=== PATIENT | female | born 1995 | race Caucasian/White ===

== ENCOUNTER 2020-01-24 08:57 | Emergency (ER) | payer OTHER, SELFPAY ==
[2020-01-24 09:08] VITALS: BP 117/89; PULSE 93; RESP 14; TEMP 36.6; O2SAT 100
--- NOTE | 2020-01-24 09:09 | ED.URI ---
HPI - URI/Sore Throat General Chief Complaint: Upper Respiratory Infection Stated Complaint: left eye throat and ear tender Time Seen by Provider: 01/24/20 09:09 Source: patient and RN notes reviewed History of Present Illness HPI Narrative: Patient is a 24-year-old female who presents the urgent care with complaints of left lower eyelid irritation, sore throat and left-sided headache. Patient states she does have a history of migraines and has not taken anything for the headache since it started last night. Patient states that it also is a little painful to swallow due to the sore throat. Patient denies of any fever, nausea, vomiting. No other acute complaints. No acute distress noted. Patient read the plan of care. Related Data Allergies Allergy/AdvReac Type Severity Reaction Status Date / Time No Known Allergies Allergy Verified 01/24/20 09:11 Review of Systems Review of Systems: Narrative: CONSTITUTIONAL: Denies fever, chills, or sweats. EYES: Reports of left eye irritation and drainage ENT: Reports of sore throat and left-sided earache CARDIOVASCULAR: Denies chest pain, palpitations, or edema. RESPIRATORY: Denies cough or dyspnea. GASTROINTESTINAL: Denies abdominal pain, nausea, vomiting, or diarrhea. GENITOURINARY: Denies dysuria or hematuria. SKIN: Denies rash or itching. MUSCULOSKELETAL: Denies back pain, joint pain, or myalgia. NEUROLOGIC: Reports of headache All other systems reviewed are negative, except as documented in HPI. [facility] Family History Family History (Updated 04/05/14 @ 07:13 by DOCTOR UNKNOWN) Mother Family history of thyroid disease Social History Social History Smoking status: Never smoker Alcohol intake: current Comments At the time of my signature, I reviewed and agree with the nursing past medical, surgical, social, and family history. There is no relevant family history pertinent to the patient complaint. Exam Narrative: Exam Narrative: GENERAL: This is a well-nourished, well-developed patient, in no apparent distress. HEAD: normocephalic, atraumatic. EYES: PERRL. Sclera clear/white. Vision is grossly intact. Clear drainage noted to the left with mild edema to left lower eyelid and notable irritation; no obvious hordeolum, injury EARS: External ears normal, auditory canals clear and without drainage, TMs normal without perforation. Hearing grossly intact. NOSE: External nose normal with no obvious nasal discharge, nares without redness, no rhinorrhea. THROAT: Mucous membranes moist, mild erythema noted posterior oropharynx NECK: Neck supple CARDIOVASCULAR: Regular rate and rhythm without murmurs, gallops, or rubs. RESPIRATORY: Clear to auscultation. Breath sounds equal bilaterally. No wheezes, rales, or rhonchi. SKIN: warm, intact with no suspicious lesions or rash, good texture and turgor. NEURO: awake, alert, and oriented to person, place and time. There were no obvious focal neurologic abnormalities. EXTREMITIES: No clubbing, cyanosis, or edema. Course Vital Signs Vital signs: Vital Signs Temperature 98 F 01/24/20 09:08 Pulse Rate 93 01/24/20 09:08 Respiratory Rate 14 01/24/20 09:08 Blood Pressure 117/89 01/24/20 09:08 Pulse Oximetry 100 01/24/20 09:08 Temperature 98 F 01/24/20 09:08 Pulse Rate 93 01/24/20 09:08 Respiratory Rate 14 01/24/20 09:08 Blood Pressure 117/89 01/24/20 09:08 Pulse Oximetry 100 01/24/20 09:08 Reviewed MDM - URI/Sore Throat MDM Narrative Medical decision making narrative: Reviewed lab results with the patient. Aware that strep swab was negative. Educated patient on culture we will call within 72 hours if culture is positive and antibiotics and necessary. Advised the patient to use [id number] medication for her migraine such as Excedrin or ibuprofen. Use warm compress to the left eye for comfort. Use eyedrops to the left eye as directed. Do not wear any eye make-up on the left eye for the next 2 to
== END 2020-01-24 09:42 | disposition home or self-care (01) ==
PROVIDERS: Emergency Provider Nurse Practitioner Family
DX: J02.9 Acute pharyngitis, unspecified (principal); H57.12 Ocular pain, left eye
CPT/HCPCS: 87081; 87880; 99213; G0463

== ENCOUNTER 2021-10-31 12:44 | Outpatient (CLI) | payer OTHER, SELFPAY ==
[2021-10-31 13:23] LABS: Hematocrit 40.4 % (37.0-47.0); Hemoglobin 13.2 g/dL (12.0-15.0)
== END 2021-10-31 12:45 | disposition home or self-care (01) ==
PROVIDERS: PCP Family Medicine; Visit Provider Student in an Organized Health Care Education/Training Program
DX: N92.6 Irregular menstruation, unspecified (principal); Z01.818 Encounter for other preprocedural examination
CPT/HCPCS: 36415; 85014; 85018

== ENCOUNTER 2021-11-06 00:34 | Day surgery (SDC) | payer OTHER, SELFPAY ==
[2021-10-27 15:26] VITALS: BMI 25.6
--- NOTE | 2021-10-27 15:27 | PC.NURSE ---
Report to the Outpatient Waiting Room, entrance under the green pavilion located off [facility], at time _1330 on date _11/06/21 . OR Time: ___1530 . - You and your visitor will be asked a series of questions to screen for COVID 19 for your protection. - A mask is required within the hospital. Preoperative COVID Testing Requirements: No COVID Test needed if: (proof is required; if not received patient will have Rapid Test prior to entry) - Patient has received COVID Vaccine at least 14 days prior to procedure date or - Patient has positive COVID test result within last 90 days of surgery date. COVID Test needed if above criteria is not met If not COVID vaccinated a COVID test must be conducted within 72 hours of surgery and patient is asked to isolate self from time of testing until procedure. You will go to the [facility] for your COVID testing. The [facility] is located at the corner of [address] [facility]. You will only be called if COVID results are positive and your surgeon may reschedule your elective surgery date. Patients may have clear liquids (water, carbonated beverages, clear teas, apple juice) until 3 hours prior to surgery with a maximum of 20 ounces. - No food from midnight until time of surgery - Infants may have breast milk until 4 hours before surgery, formula 6 hours prior to surgery. - Children will be allowed to drink immediately following surgery. If applicable, please bring a bottle or sippy cup to assist with drinking. Juice, water, soda, and popsicles are readily available. For infants on formula, please bring formula the day of surgery. Pacifiers are allowed. Take the following medications with a SIP of water the morning of surgery: CITALOPRAM Medications to discontinue per physician Date to take last dose Please no make-up, nail [place], hairspray, perfume, deodorant, or body powder the day of surgery. No jewelry (including any body piercings) or valuables the day of surgery, leave them at home. Please take a shower or bath the night before, or the morning of, surgery with an antibacterial soap. Wear comfortable, loose fitting clothing. Children are encouraged to wear pajamas. - Jewelry must be removed prior to entering the operating room. Rings and piercings that are not removed may be cut off. - The hospital will not accept responsibility for valuables. - Please leave all valuables, including medications, at home the day of surgery. If you are going home after surgery, a licensed bus driver school must drive you home. - NO public transportation without another adult. - We recommend that an adult stay with you for 24 hours following discharge. - We also recommend that you do not drive, make important decision, drink alcoholic beverages, or take any drugs that were not prescribed by your health care provider for at least 24 hours after your discharge time. For Pediatric surgeries, we recommend two adults accompany the child home (only one inside the building at this time). One visitor will be allowed to accompany the patient into the hospital. Patients visitor will be instructed to remain with patient at all times or leave the building. We will allow the visitor to come back to the postoperative area when patient is ready. Follow any additional instructions given to you from your surgeon. Telephone instructions given to __PATIENT and asked if any additional questions and then verbalized understanding. Patient advised to call surgeon office or pre surgery nurse liaison [phone] if any additional questions.
--- NOTE | 2021-11-05 07:55 | PM.IMHP ---
H&P: HPI History of Present Illness Date/Time: 11/05/21 07:55 Chief Complaint: abnormal uterine bleeding Narrative: 26 yo who presents for hysteroscopy D&C for abnormal uterine bleeding. Pt presented to the office complaining of irregular menses. Pt states the length and bleeding profile of her cycle would vary month to month. Pt also reported some intermenstrual spotting. Pt and her have been trying to conceive without success. Pelvic US showed an area of thickened endometrial near the fundus. Image may suggest polyp. Will plan for hysteroscopy D&C to evaluate the cavity. Review of Systems Cardiovascular: Cardiovascular: Denies chest pain, Denies leg edema, Denies palpitations, Denies dyspnea and Denies dyspnea on exertion Respiratory: Respiratory: Denies cough, Denies dyspnea and Denies dyspnea on exertion Gastrointestinal: Gastrointestinal: Denies abdominal pain, Denies constipation, Denies diarrhea, Denies nausea and Denies vomiting Genitourinary: Genitourinary: Denies hematuria, Denies urinary frequency, Denies dysuria, Denies pelvic pain, Denies urinary incontinence and Denies vaginal discharge Neurologic: Reports system reviewed and no additional complaints, except as documented Psychiatric: Psychiatric: Reports no additional psychiatric complaints Endocrine: Endocrine: Denies palpitations [facility] Family History Family History (Updated 04/05/14 @ 07:13 by DOCTOR UNKNOWN) Mother Family history of thyroid disease Social History Social History Smoking status: Never smoker Alcohol intake: current Drinks per week: 1 Substance use: never Meds Home Medications and Allergies Home Medications Medication Instructions Recorded Confirmed Type amitriptyline 10 mg PO HS 10/27/21 10/27/21 History escitalopram oxalate 20 mg PO DAILY 10/27/21 10/27/21 History rizatriptan 10 mg PO PRN PRN 10/27/21 10/27/21 History Allergies Allergy/AdvReac Type Severity Reaction Status Date / Time No Known Allergies Allergy Verified 01/24/20 09:11 Exam Const: General: no acute distress Eyes: EOM: EOMs intact bilaterally Neck: Neck: supple Thyroid: thyroid normal Chest: Breast/axilla inspection: normal inspection of the breasts Breast/axilla palpation: normal palpation of the breasts, normal palpation of the axillae and no axillary lymphadenopathy Resp: Effort & Inspection: normal respiratory effort Auscultation: clear to auscultation bilaterally Cardio: Rate: regular rate Rhythm: regular rhythm GI: Inspection: non-distended GI Palp: Yes Soft to palpation, No Tenderness to palpation present (GI) and No Guarding due to palpation present (GI) Auscultation: normal bowel sounds : General: No bladder normal to palpation External Female Exam: normal external appearance Speculum Exam - Vagina: normal vaginal discharge and No vaginal bleeding Speculum Exam - Cervix: nontender Bimanual exam- vagina & uterus: No bladder normal to palpation and No Cervical tenderness present OB/external & speculum: No vaginal bleeding Skin: General skin exam: normal color and no rashes or lesions noted Neuro: Cognition (Neuro): normal cognition Speech: normal speech Extrem: General: normal to inspection and no edema Psych: Mental Status: mental status grossly normal Affect: normal affect Assessment and Plan Assessment and plan (1) Abnormal uterine bleeding (AUB): Code(s): N93.9 - Abnormal uterine and vaginal bleeding, unspecified Status: Acute Assessment and Plan: pt c/o irregular menses pt having intermenstrual spotting pelvic US showed focal area of thickened endometrium pt has been unable to conceive will plan for hysteroscopy D&C to evaluate the endometrium.
--- NOTE | 2021-11-05 15:24 | P.PNAN_ITS ---
Anes - Initial Pre Proc Eval Procedure: Operation Date: 11/06/21 15:30 Proposed Procedures p Hysteroscopy Dilation and Curettage - Gilberto Fitzgerald MD Date/Time: 11/05/21 15:24 Surgeon: Gilberto Fitzgerald MD Pre Op Diagnosis: irregular bleeding Patient Data Age: 26 Gender: F Height: 1.68 m Weight: 72 kg Allergies Allergy/AdvReac Type Severity Reaction Status Date / Time No Known Allergies Allergy Verified 11/06/21 13:23 Home Medications Medication Instructions Recorded Confirmed Type amitriptyline 10 mg PO HS 10/27/21 11/06/21 History escitalopram oxalate 20 mg PO DAILY 10/27/21 11/06/21 History rizatriptan 10 mg PO PRN PRN 10/27/21 11/06/21 History Patient hx anesthesia problems: none Family hx anesthesia problems: none Results Review: All pre-operative results and documents have been reviewed as part of the pre-operative evaluation. [facility] Past Medical History Medical History (Updated 11/05/21 @ 15:24 by Rick Cheung MD) Anxiety Depression Migraine Family History Family History (Updated 04/05/14 @ 07:13 by DOCTOR UNKNOWN) Mother Family history of thyroid disease Social History Social History Smoking status: Never smoker Alcohol intake: current Drinks per week: 1 Substance use: never Living arrangements: with family Anes - Eval Final PreProcedure Day of Procedure 11/05/21 15:24 Patient weight: normal Heart: regular rate and rhythm Lungs: clear to auscultation and normal air movement Airway: Mallampati scale class II Neurological: alert and oriented Last oral intake: >/= 8 hours ASA classification: II Emergent: no Anesthetic plan: proceed Anesthesia type and monitoring: general GIVS Results Review: All pre-operative results and documents have been reviewed as part of the pre-operative evaluation. Informed Consent: The patient's anesthetic plan and its attendant risks and benefits were discussed with the patient/family/POA. Questions were solicited and answers provided to the satisfaction of the patient/family/POA.
--- NOTE | 2021-11-06 09:03 | WPDHPUPDATE1 ---
History and Physical Update Update Date/Time: 11/06/21 09:03 History and Physical has been reviewed, including an updated exam of the patient. There are NO changes in the patient's condition. Risks, benefits, and alternatives have been discussed and questions answered. Patient agrees to proceed with procedure.
[2021-11-06] MEDS: ACETAMINOPHEN 500 MG TABLET 1000 MG PO (13:35)
[2021-11-06 13:37] VITALS: BMI 26.4
[2021-11-06 13:38] VITALS: BP 114/95; PULSE 85; RESP 16; TEMP 36.9; O2SAT 99
[2021-11-06] MEDS: LACTATED RINGERS 1,000 ML 30 ML IV CONT (13:54)
[2021-11-06 15:51] VITALS: BP 97/59; PULSE 66; RESP 16; O2SAT 100
--- NOTE | 2021-11-06 15:56 | W.PM.PROC2 ---
Procedure Note - Detailed Date of Procedure 11/06/21 Pre-op Diagnosis irregular bleeding Post-op Diagnosis Same Procedure Performed paracervical block hysteroscopy dilation & curettage Surgeon Gilberto Fitzgerald MD Anesthesia General Indications abnormal uterine bleeding Findings normal appearing intrauterine cavity. Normal tubal ostia bilaterally Description of Procedure Ayla Vaughn presents for hysteroscopy D&C. She was counseled as to the indications, risks, benefits, and alternatives to surgery, with the risks including bleeding, infection, damage to surrounding organs, VTE, and complications of anesthesia. Her verbal and written consent was obtained. PROCEDURE: The patient was taken to the OR and general anesthesia induced. She was prepped and draped in Guille stirrups with support of the back and bilateral lower extremities. I/O catheterization performed of the bladder. The above findings were noted. Infiltration with 1% lidocaine at the 3 and 9 o'clock cervical positions was performed. A single tooth tenaculum was placed on the anterior lip of the cervix. The cervix was dilated with sequential Salud dilators. Hysteroscopy, using a normal saline medium, was performed and showed the above findings. The endometrial lining was visualized and was found to be globally thickened but normal in appearance. Bilateral tubal ostia visualized and patent. Sharp uterine curettage was then performed and tissue placed on Telfa. The tenaculum was removed and hemostasis was observed. The patient tolerated the procedure well. Sponge, lap, and needle counts were correct. Fluid deficit of hysteroscopy was 30 mL. The patient was taken to the recovery room in stable condition. Estimated Blood Loss 25 Urine Output 100 Drains No Packing No Pathology Yes (endometrial curettings ) Complications No immediate complications Condition Stable Disposition PACU
[2021-11-06] MEDS: oxyCODONE HCL (*CRX) 5 MG TAB IR PO (16:05)
[2021-11-06 16:15] VITALS: BP 101/61; PULSE 64; RESP 20
[2021-11-06 16:45] VITALS: BP 106/73; PULSE 58; RESP 20
== END 2021-11-06 16:48 | disposition home or self-care (01) ==
PROVIDERS: PCP Family Medicine; Visit Provider Student in an Organized Health Care Education/Training Program
PROC: 0U5B8ZZ Destruction of Endometrium, Via Natural or Artificial Opening Endoscopic (ICD-10-PCS; CPT 58563; principal; 2021-11-06 15:30)
DX: N93.9 Abnormal uterine and vaginal bleeding, unspecified (principal); F41.8 Other specified anxiety disorders; N92.6 Irregular menstruation, unspecified
CPT/HCPCS: 58558; 36415; 85014; 85018; 88305; A9270; J2250; J2704; J3010; J7120

== ENCOUNTER 2022-01-10 10:35 | Emergency (ER) | payer OTHER, SELFPAY ==
--- NOTE | ~2022-01-10 | XR_ITS ---
EXAMINATION: XR finger 2nd LT min 2V INDICATION: Left second finger pain TECHNIQUE: Three views of the left second finger are obtained. COMPARISON: None available FINDINGS: There is soft tissue swelling of the finger. The joint spaces are normal. There is no fract ure. No radiopaque foreign body is identified. IMPRESSION: 1. Soft tissue swelling without acute osseous abnormality or radiopaque foreign body. Reviewed, dictated and finalized at location A.
[2022-01-10 10:50] VITALS: BP 111/65; PULSE 86; RESP 18; TEMP 36.6; O2SAT 100
--- NOTE | 2022-01-10 11:06 | ED.UPPEXIN ---
HPI - Extremity Injury (Upper) General Chief Complaint: Extremity Injury, Upper Stated Complaint: left finger injury Time Seen by Provider: 01/10/22 11:27 Source: patient and RN notes reviewed Mode of arrival: ambulatory Limitations: no limitations History of Present Illness HPI narrative: 26-year-old female presents with concern for injury to the second digit of left hand. Reports yesterday her was mowing the lawn and a rock flew out from under the mower and hit her finger. She reports a small abrasion to the dorsal aspect of the hand, reports swelling and bruising. Reports pain with straightening the digit. Reports difficulty fully bending the digit. Related Data Home Medications Medication Instructions Recorded Confirmed cyanocobalamin (vitamin B-12) 1,000 ml 01/10/22 1,000 mcg/mL injection solution escitalopram oxalate 20 mg tablet 20 tablet PO DAILY 01/10/22 01/10/22 Allergies Allergy/AdvReac Type Severity Reaction Status Date / Time No Known Allergies Allergy Verified 01/10/22 11:08 Review of Systems Review of Systems: CONSTITUTIONAL: Denies malaise, chills, sweats, or fever. SKIN: Denies rash or itching, open skin, laceration, redness, warmth. Reports small abrasion to the second digit of left hand MUSCULOSKELETAL: Reports pain, swelling, bruising at the second edge of left hand NEUROLOGIC: Denies numbness, weakness All systems reviewed & are unremarkable except as noted in HPI and below PMFSH Past Medical History Medical History (Updated 01/10/22 @ 11:35 by Alessandra Reynoso NP) Anxiety Depression Migraine Family History Family History (Updated 04/05/14 @ 07:13 by DOCTOR UNKNOWN) Mother Family history of thyroid disease Social History Social History Smoking status: Never smoker Alcohol intake: current Drinks per week: 1 Substance use: never Comments At time of signature, agree with nursing past medical, surgical, social and family history. There is no relevant family history pertinent to the presenting complaint Exam Narrative: GENERAL: Well-appearing, well-nourished, and in no acute distress. HEAD: Normocephalic, atraumatic. EYES: PERRLA, conjunctivae clear NECK: Supple. CHEST: Speaks in full sentences. No respiratory distress. HEART: Regular rate and rhythm. Normal and equal peripheral pulses. EXTREMITIES: [Xxx] has normal strength and sensation, normal range of motion. No edema or ecchymosis. 5/5 strength with [xxx] flexion and extension. Normal sensation with sensitivity to light touch and pain. No point tenderness. No open wounds, no skin tenting, no devitalized tissue or atrophy, no trophic changes, no obvious deformity, alignment normal, nearby joints and structures intact. Distal pulses palpable and equal bilaterally, skin warm, dry, pink. Capillary refill less than 3 seconds. SKIN: Warm, dry, no rash. NEURO: Alert and oriented x3. PSYCH: Normal mood and affect Course Course Emergency Course: Patient is aware of diagnosis, understands and agrees to treatment plan. Anticipatory guidance given. Patient agrees to follow-up as directed and is aware of reasons to seek care at the emergency department. Portions of this record may have been created with voice recognition software Level of Care: Express Care Visit Vital Signs Vital signs: Vital Signs Temperature 97.8 F 01/10/22 10:50 Pulse Rate 86 01/10/22 10:50 Respiratory Rate 18 01/10/22 10:50 Blood Pressure 111/65 01/10/22 10:50 Pulse Oximetry 100 01/10/22 10:50 Oxygen Delivery Room Air 01/10/22 10:50 Temperature 97.8 F 01/10/22 11:10 Pulse Rate 86 01/10/22 11:10 Respiratory Rate 18 01/10/22 11:10 Blood Pressure 111/65 01/10/22 11:10 Pulse Oximetry 100 01/10/22 11:10 Oxygen Delivery Room Air 01/10/22 11:10 Reviewed. MDM - Extremity Injury (Upper) MDM Narrative Medical decision making narrative: Patients injury and pain is consistent with musculoske
[2022-01-10 11:10] VITALS: BP 111/65; PULSE 86; RESP 18; TEMP 36.6; O2SAT 100
== END 2022-01-10 11:42 | disposition home or self-care (01) ==
PROVIDERS: Emergency Provider Nurse Practitioner; PCP Family Medicine
DX: S63.611A Unspecified sprain of left index finger, initial encounter (principal); W20.8XXA Other cause of strike by thrown, projected or falling object, initial encounter; F41.9 Anxiety disorder, unspecified; F32.A Depression, unspecified
CPT/HCPCS: 29130; 73140; 99213; G0463

== ENCOUNTER 2023-09-13 07:54 | Outpatient (CLI) | payer OTHER, MEDICAID, SELFPAY | END 2023-09-13 07:55 | disposition home or self-care (01) | PROVIDERS: PCP Family Medicine; Visit Provider Obstetrics & Gynecology | DX: Z01.818 Encounter for other preprocedural examination (principal); N83.209 Unspecified ovarian cyst, unspecified side | CPT/HCPCS: 36415; 86850; 86900; 86901 ==

== ENCOUNTER 2023-09-17 00:58 | Day surgery (SDC) | payer MEDICAID, SELFPAY ==
[2023-09-08 15:00] VITALS: BMI 21.6
--- NOTE | 2023-09-08 15:04 | PC.NURSE ---
Report to the Outpatient Waiting Room, entrance under the green pavilion located off [facility], at time 7:15 on date 09/17/23. Planned Procedure Time: 9:15. Time changes happen often and if your time is changed the preop area will call you the afternoon before. - You and your visitor will be asked to self-screen and do not enter if you have any COVID symptoms. - A mask is optional within the hospital at this time. Patients may have clear liquids (water, carbonated beverages, clear teas, apple juice) until 3 hours prior to surgery (6:15) with a maximum of 20 ounces. - No food from midnight until time of surgery Take the following medications with a SIP of water the morning of surgery: NONE DO NOT STOP ANY OF YOUR OTHER PRESCRIPTION MEDICATIONS PRIOR TO SURGERY ?EXCEPT THE FOLLOWING Medications to discontinue per physician: N/A Date to take last dose: N/A Please no make-up, nail burm[place], hairspray, perfume, deodorant, or body powder the day of surgery. No jewelry (including any body piercings) or valuables the day of surgery, leave them at home. Please take a shower or bath the night before, or the morning of, surgery with an antibacterial soap. Wear comfortable, loose fitting clothing. - Jewelry must be removed prior to entering the operating room. Rings and piercings that are not removed may be cut off. - The hospital will not accept responsibility for valuables. - Please leave all valuables, including medications, at home the day of surgery. If you are going home after surgery, a licensed hole digger truck driver must drive you home. - NO public transportation without another adult if you receive anesthesia. - We recommend that an adult stay with you for 24 hours following discharge. - We also recommend that you do not drive, make important decision, drink alcoholic beverages, or take any drugs that were not prescribed by your health care provider for at least 24 hours after your discharge time. Follow any additional instructions given to you from your surgeon. If you or anyone in your household have experienced Covid symptoms in the past week, please notify your surgeon or the nurse liaison at the phone number below for possible testing. Telephone instructions given to PT - GHULAM BOWDEN and asked if any additional questions and then verbalized understanding. Patient advised to call surgeon office or pre surgery nurse liaison [phone] if any additional questions.
--- NOTE | 2023-09-15 16:20 | PM.IMHP ---
H&P: HPI History of Present Illness Date/Time: 09/15/23 16:20 Chief Complaint: Pelvic pain and right ovarian cyst Narrative: This is a 28-year-old 2 para 2 admitted for laparoscopy right ovarian cystectomy. She has pelvic pain discomfort dyspareunia. She has a pretty good size right ovarian cyst seen on ultrasound. Risks and benefits reviewed including but not exclusive of , aspiration burning, bleeding, transfusion, perforation injury to bowel, bladder, ureters, or other internal organs with need for open laparotomy. She received the ACOG handout entitled laparoscopy. She had all questions answered. She asked to proceed PMF Past Medical History Medical History Anxiety Depression Migraine Family History Family History Mother Family history of thyroid disease Social History Social History Smoking status: Never smoker Alcohol intake: current Drinks per week: 1 Alcohol use details: 1/MONTH Substance use: never Substance use type: does not use Living arrangements: with family Spiritual care concerns: No Meds Home Medications and Allergies Home Medications Medication Instructions Recorded Confirmed Type ondansetron 4 mg disintegrating 4 mg PO Q6H PRN Nausea 09/08/23 09/08/23 History tablet pantoprazole 40 mg tablet,delayed 40 mg PO BID 09/08/23 09/08/23 History release Allergies Allergy/AdvReac Type Severity Reaction Status Date / Time No Known Allergies Allergy Verified 09/08/23 14:58 Exam Const: General: cooperative, healthy appearing, comfortable and average body habitus Orientation/consciousness: oriented to person, oriented to place and oriented to time Resp: Effort & Inspection: normal respiratory effort Cardio: Rate: regular rate Rhythm: regular rhythm Heart sounds: S1 normal heart sound present and S2 normal heart sound present GI: Inspection: normal to inspection : External Female Exam: normal external appearance Speculum Exam - Vagina: normal appearance of the vagina Speculum Exam - Cervix: normal appearance of the cervix Bimanual exam- vagina & uterus: soft Bimanual Exam- Adnexa, other: tender on the right and Adnexal mass present on the right tender Assessment and Plan Assessment and plan (1) Pelvic pain: Code(s): R10.2 - Pelvic and perineal pain Status: Acute (2) Right ovarian cyst: Code(s): N83.201 - Unspecified ovarian cyst, right side Status: Acute Plan Laparoscopic right ovarian cystectomy
[2023-09-17] VITALS (8 sets, daily range): BP systolic 93–110; BP diastolic 62–74; PULSE 65–101; RESP 12–20; TEMP 36.7–36.8; O2SAT 100
--- NOTE | 2023-09-17 06:38 | WPDHPUPDATE1 ---
History and Physical Update Update Date/Time: 09/17/23 06:38 History and Physical has been reviewed, including an updated exam of the patient. There are NO changes in the patient's condition. Risks, benefits, and alternatives have been discussed and questions answered. Patient agrees to proceed with procedure.
[2023-09-17] MEDS: ACETAMINOPHEN 500 MG TABLET 1000 MG PO (08:32)
[2023-09-17] MEDS: LACTATED RINGERS 1,000 ML 30 ML IV CONT ×2 (08:32→09:46)
[2023-09-17] MEDS: KETOROLAC 15 MG/ML VIAL (*BKC) IV PUSH (08:35)
[2023-09-17] MEDS: SCOPOLAMINE 1 MG PATCH 1 PATCH TRANSDERM (08:35)
--- NOTE | 2023-09-17 08:39 | WPDANESEPPF ---
Anes - Initial Pre Proc Eval Procedure: Operation Date: 09/17/23 09:15 Proposed Procedures p Laparoscopic Right Ovarian Cystectomy - Maurice Posada MD Date/Time: 09/17/23 08:39 Surgeon: Maurice Posada MD Pre Op Diagnosis: right ovarian cyst, pelvic pain Patient Data Age: 28 Gender: F Height: 1.65 m Weight: 59.5 kg Allergies Allergy/AdvReac Type Severity Reaction Status Date / Time No Known Allergies Allergy Verified 09/17/23 07:38 Home Medications Medication Instructions Recorded Confirmed Type ondansetron 4 mg disintegrating 4 mg PO Q6H PRN Nausea 09/08/23 09/17/23 History tablet pantoprazole 40 mg tablet,delayed 40 mg PO BID 09/08/23 09/17/23 History release hydrocodone 5 mg-acetaminophen 325 1 tablet PO Q4H PRN pain #20 tabs 09/17/23 Rx mg tablet Patient hx anesthesia problems: none Family hx anesthesia problems: none Results Review: All pre-operative results and documents have been reviewed as part of the pre-operative evaluation. [facility] Past Medical History Medical History Anxiety Depression Migraine Family History Family History Mother Family history of thyroid disease Social History Social History Smoking status: Never smoker Alcohol intake: current Drinks per week: 1 Alcohol use details: 1/MONTH Substance use: never Substance use type: does not use Living arrangements: with family Spiritual care concerns: No Anes - Eval Final PreProcedure Day of Procedure 09/17/23 08:39 Patient weight: normal Heart: regular rate and rhythm Lungs: clear to auscultation Airway: Mallampati scale class II Neurological: alert and oriented Last oral intake: >/= 8 hours ASA classification: I Emergent: no Anesthetic plan: proceed Anesthesia type and monitoring: general ETT and standard monitoring Results Review: All pre-operative results and documents have been reviewed as part of the pre-operative evaluation. Informed Consent: The patient's anesthetic plan and its attendant risks and benefits were discussed with the patient/family/POA. Questions were solicited and answers provided to the satisfaction of the patient/family/POA.
--- NOTE | 2023-09-17 09:42 | P.OP_ITS ---
Procedure Note - Detailed Date of Procedure 09/17/23 Pre-op Diagnosis right ovarian cyst, pelvic pain Post-op Diagnosis Same Procedure Performed Laparoscopic destruction of right ovarian cyst and destruction endometriosis Surgeon Maurice Posada MD Anesthesia General Indications 28-year-old female with a complex right ovarian cyst and pelvic pain Findings endometriosis and right ovarian cyst Description of Procedure patient was prepped draped normal sterile fashion placed dorsal lithotomy position. Under excellent general trach anesthesia weighted speculum placed in posterior fornix vagina. Anterior lip of cervix grasped with single-tooth tenaculum. Hernandez's cannula inserted the cervix and attached to the single- tooth. This was to be used later for uterine manipulation. Bladder was emptied of clear urine in the weighted speculum was removed. The gloves were changed. An infraumbilical incision made the Veress needle passed in the abdomen. Abdomen filled with CO2 gas [id number]. The 5mm trocar advanced under direct visualization assuring no injury. Patient placed in Trendelenburg and a suprapubic incision made. The 5mm trocar advanced under direct visualization assuring no injury. The above findings were seen. Photo documentation was undertaken using the monopolar cautery the endometriosis implants and the on the cul-de-sac and the right ovarian cyst were burned without difficulty. The right ovarian cyst was then opened in linear fashion draining clear fluid irrigation undertaken to clear. The appendix and the liver edge and gallbladder all appeared within normal limits. The instruments withdrawn. The patient was awakened and went to recovery in satisfactory condition. After closing the incisions with 4-0 Monocryl glue. There were no complications Estimated Blood Loss 5 Drains No Packing No Pathology None sent Complications No immediate complications Condition Stable Disposition PACU
[2023-09-17] MEDS: fentaNYL CITRATE INJ (*CRX) 100 MCG/2 ML VIAL 25 MCG IV PUSH ×6 (10:08→10:33)
[2023-09-17] MEDS: oxyCODONE HCL (*CRX) 5 MG TAB IR PO (10:56)
[2023-09-17] MEDS: HYDROmorphone HCL INJ (*CRX) 1 MG/ML SYR IV PUSH (11:17)
[2023-09-17] MEDS: ONDANSETRON INJ 4 MG/2 ML VIAL IV PUSH (11:45)
== END 2023-09-17 12:10 | disposition home or self-care (01) ==
PROVIDERS: PCP Family Medicine; Visit Provider Obstetrics & Gynecology
PROC: (CPT 49320; principal; 2023-09-17 09:15)
DX: N83.201 Unspecified ovarian cyst, right side (principal); N80.399 Endometriosis of the pelvic peritoneum, other specified sites, unspecified depth
CPT/HCPCS: 58662; 36415; 86850; 86900; 86901; A9270; J0330; J1100; J1170; J1885; J2250; J2405; J2704; J3010; J7030; J7120

== ENCOUNTER 2023-12-13 12:56 | Outpatient (CLI) | payer MEDICAID, SELFPAY ==
[2023-12-13 13:42] LABS: Basophils Absolute Auto 0.1 K/mm3 (0.0-0.1); Eosinophils Absolute Auto 0.1 K/mm3 (0-0.3); Eosinophils Percent Auto 1.2 % (0-4.4); Hematocrit 38.3 % (37.0-47.0); Immature Granulocyte Absolute 0.02 K/mm3 (0.00-0.031); Immature Granulocyte Percent A 0.3 % (0-0.5); Lymphocytes Percent Auto 32.5 % (18.3-44.2); Mean Corpuscular HGB Conc 31.3 g/dl (32-36); Mean Corpuscular Hemoglobin 28.2 pg (26-34); Mean Corpuscular Volume 89.9 fl (80-100); Mean Platelet Volume 11.1 fl (7.4-10.4); Monocytes Absolute Auto 0.5 K/mm3 (0.1-0.6); Neutrophils Absolute Auto 3.3 K/mm3 (1.3-6.7); Platelet Count Result 246 k/mm3 (150-375); Red Blood Count 4.26 M/mm3 (4.2-5.4); Red Cell Distribution Width 12.3 % (11.5-14.5); White Blood Count 5.9 K/mm3 (4.5-10.0)
== END 2023-12-13 12:57 | disposition home or self-care (01) ==
LOC: ANHSURGERY 13:00
PROVIDERS: PCP Family Medicine; Visit Provider Obstetrics & Gynecology
DX: N93.9 Abnormal uterine and vaginal bleeding, unspecified (principal); Z01.818 Encounter for other preprocedural examination
CPT/HCPCS: 36415; 85025; 86850; 86900; 86901

== ENCOUNTER 2023-12-17 01:49 | Day surgery (SDC) | payer MEDICAID, SELFPAY ==
[2023-12-10 14:59] VITALS: BMI 22.6
--- NOTE | 2023-12-10 15:00 | PC.NURSE ---
Report to the Outpatient Waiting Room, entrance under the green pavilion located off [facility], at time _0930_ on date _[id number]_. Planned Procedure Time: _1130_. Time changes happen often and if your time is changed the preop area will call you the afternoon before. - You and your visitor will be asked to self-screen and do not enter if you have any COVID symptoms. - A mask is optional within the hospital at this time. Patients may have clear liquids (water, carbonated beverages, clear teas, apple juice) until 3 hours prior to surgery with a maximum of 20 ounces. - No food from midnight until time of surgery Take the following medications with a SIP of water the morning of surgery: ____None DO NOT STOP ANY OF YOUR OTHER PRESCRIPTION MEDICATIONS PRIOR TO SURGERY ?EXCEPT THE FOLLOWING Medications to discontinue per physician None Date to take last dose Please no make-up, nail argentine, hairspray, perfume, deodorant, or body powder the day of surgery. No jewelry (including any body piercings) or valuables the day of surgery, leave them at home. Please take a shower or bath the night before, or the morning of, surgery with an antibacterial soap. Wear comfortable, loose fitting clothing. - Jewelry must be removed prior to entering the operating room. Rings and piercings that are not removed may be cut off. - The hospital will not accept responsibility for valuables. - Please leave all valuables, including medications, at home the day of surgery. If you are going home after surgery, a licensed dedicated intermodal truck driver must drive you home. - NO public transportation without another adult if you receive anesthesia. - We recommend that an adult stay with you for 24 hours following discharge. - We also recommend that you do not drive, make important decision, drink alcoholic beverages, or take any drugs that were not prescribed by your health care provider for at least 24 hours after your discharge time. Follow any additional instructions given to you from your surgeon. If you or anyone in your household have experienced Covid symptoms in the past week, please notify your surgeon or the nurse liaison at the phone number below for possible testing. Telephone instructions given to __Ayla___and asked if any additional questions and then verbalized understanding. Patient advised to call surgeon office or pre surgery nurse liaison [phone] if any additional questions.
--- NOTE | 2023-12-14 06:57 | PM.IMHP ---
H&P: HPI History of Present Illness Date/Time: 12/14/23 06:57 Chief Complaint: Pelvic pain/irregular bleeding/enlarged uterus/dyspareunia Narrative: 28-year-old female 2 para 2 admitted for robotic total vaginal hysterectomy and bilateral salpingectomy secondary to prolapse pain and dyspareunia. She has had a history of irregular bleeding as well and known endometriosis. She understands this to be a permanent irreversible procedure. Risks and benefits were reviewed including but not exclusive of , aspiration pneumonia, bleeding, transfusion, perforation injury to bowel, bladder, ureters, or other internal organs with need for open laparotomy. She received the ACOG handout entitled hysterectomy as well as de [place] handout. She had all questions answered and asked to proceed PMFSH Past Medical History Medical History Anxiety Depression Migraine Family History Family History Mother Family history of thyroid disease Social History Social History Smoking status: Never smoker Alcohol intake: current Drinks per week: 1 Alcohol use details: 1/MONTH Substance use: never Substance use type: does not use Living arrangements: with family Spiritual care concerns: No Meds Home Medications and Allergies Home Medications Medication Instructions Recorded Confirmed Type No Home Medications 12/10/23 12/10/23 History Allergies Allergy/AdvReac Type Severity Reaction Status Date / Time No Known Allergies Allergy Verified 12/10/23 14:54 Exam Const: General: cooperative, healthy appearing and comfortable Nutritional Appearance: average body habitus Orientation/consciousness: oriented to person, oriented to place and oriented to time HENMT: Head: normal to inspection Resp: Effort & Inspection: normal respiratory effort Cardio: Rate: regular rate Rhythm: regular rhythm Heart sounds: S1 normal heart sound present and S2 normal heart sound present GI: Inspection: normal to inspection Auscultation: normal bowel sounds : External Female Exam: normal external appearance Speculum Exam - Vagina: normal appearance of the vagina Speculum Exam - Cervix: normal appearance of the cervix (Second-degree prolapse) Bimanual exam- vagina & uterus: enlarged and Uterine tenderness Bimanual Exam- Adnexa, other: normal adnexae Assessment and Plan Assessment and plan (1) Pelvic pain: Code(s): R10.2 - Pelvic and perineal pain Status: Acute (2) Uterine prolapse: Code(s): N81.4 - Uterovaginal prolapse, unspecified Status: Acute (3) Enlarged uterus: Code(s): N85.2 - Hypertrophy of uterus Status: Acute (4) Dyspareunia: Status: Acute Plan Robotic total vaginal hysterectomy and bilateral salpingectomy
[2023-12-17] VITALS (12 sets, daily range): BP systolic 91–113; BP diastolic 53–70; PULSE 71–86; RESP 10–20; TEMP 36.4–37.3; O2SAT 98–100; BMI 23.5
--- NOTE | 2023-12-17 05:16 | WPDHPUPDATE1 ---
History and Physical Update Update Date/Time: 12/17/23 05:16 History and Physical has been reviewed, including an updated exam of the patient. There are NO changes in the patient's condition. Risks, benefits, and alternatives have been discussed and questions answered. Patient agrees to proceed with procedure.
[2023-12-17] MEDS: LACTATED RINGERS 1,000 ML 30 ML IV CONT ×2 (10:20→12:37)
[2023-12-17] MEDS: KETOROLAC 15 MG/ML VIAL (*BKC) IV PUSH (10:30)
[2023-12-17] MEDS: ACETAMINOPHEN 500 MG TABLET 1000 MG PO (10:30)
--- NOTE | 2023-12-17 11:06 | P.PNAN_ITS ---
Anes - Initial Pre Proc Eval Procedure: Operation Date: 12/17/23 11:30 Proposed Procedures p Robotic Assisted Total Vaginal Hysterectomy with Bilateral Salpingectomy - Maurice Posada MD Date/Time: 12/17/23 11:06 Surgeon: Maurice Posada MD Pre Op Diagnosis: pelvic pain, irr. bleeding, enlarged uterus Patient Data Age: 28 Gender: F Height: 1.68 m Weight: 66.1 kg Last Vital Signs Temp 36.6 C 12/17/23 10:00 Pulse 81 12/17/23 10:00 Resp 16 12/17/23 10:00 BP 113/70 12/17/23 10:00 Pulse Ox 100 12/17/23 10:00 O2 Del Method Room Air 12/17/23 10:00 Allergies Allergy/AdvReac Type Severity Reaction Status Date / Time No Known Allergies Allergy Verified 12/17/23 10:31 Home Medications Medication Instructions Recorded Confirmed Type hydrocodone 5 mg-acetaminophen 325 1 tablet PO Q4H PRN pain #30 tabs 12/17/23 Rx mg tablet Patient hx anesthesia problems: none Family hx anesthesia problems: none Results Review: All pre-operative results and documents have been reviewed as part of the pre- operative evaluation. [facility] Past Medical History Medical History Anxiety Depression Migraine Family History Family History Mother Family history of thyroid disease Social History Social History Smoking status: Never smoker Alcohol intake: current Drinks per week: 1 Alcohol use details: 1/MONTH Substance use: never Substance use type: does not use Living arrangements: with family Spiritual care concerns: No Anes - Eval Final PreProcedure Day of Procedure 12/17/23 11:06 Patient weight: normal Heart: regular rate and rhythm Lungs: clear to auscultation Airway: Mallampati scale class II Neurological: alert and oriented Last oral intake: >/= 8 hours ASA classification: II Emergent: no Anesthetic plan: proceed Anesthesia type and monitoring: general ETT and standard monitoring Results Review: All pre-operative results and documents have been reviewed as part of the pre- operative evaluation. Informed Consent: The patient's anesthetic plan and its attendant risks and benefits were discussed with the patient/family/POA. Questions were solicited and answers provided to the satisfaction of the patient/family/POA.
[2023-12-17] MEDS: SCOPOLAMINE 1 MG PATCH 1 PATCH TRANSDERM (11:17)
[2023-12-17] MEDS: ceFAZolin 2 GM/D5W 50 ML 2 GM/50 ML BAG IVPB (11:19)
--- NOTE | 2023-12-17 12:30 | P.OP_ITS ---
Procedure Note - Detailed Date of Procedure 12/17/23 Pre-op Diagnosis pelvic pain, irr. bleeding, enlarged uterus Post-op Diagnosis Same Procedure Performed Robotic total vaginal hysterectomy and bilateral salpingectomy Surgeon Maurice Posada MD Anesthesia General Indications 28-year-old female with excessive bleeding and pelvic pain Findings mildly enlarged uterus. Normal-appearing ovaries and tubes. Description of Procedure The patient was prepped and draped in the normal sterile fashion placed in the dorsal lithotomy position. Under excellent general trach anesthesia weighted speculum placed posterior fornix vagina. Anterior lip of the cervix grasped with a single-tooth tenaculum. Uterus sounded to 10cm. Serial dilatation with fragmented dilators performed followed by passes the 10. KENDALL and the 3. Cold cup. Next the 16 Portuguese catheter was placed in the bladder drained of clear urine. The weighted speculum was removed and the gloves were changed. Supraumbilical incision made the Veress needle passed in the abdomen. Abdomen filled with CO2 gas [id number] the 8mm trocar advanced in the abdomen. Downside visualized no injury seen. Patient placed in Trendelenburg and right and left lateral quadrant incisions made. 8Mm trocars advanced under direct visualization assuring no injury. A right upper quadrant incision made and the 8mm trocar advanced under direct visualization assuring no injury. The robot was docked. Attention was turned to the extension course counselor. The left round ligament was grasped, burned, cut. Anteriorly a bladder flap was formed by sharply dissected the peritoneum and removed through reflecting it caudally away from the cervix uterus the opposite round ligament which was clamped, burned, cut. Next the fallopian tube was sharply dissected away from the ovarian complex left of this uterine origin. In similar fashion on the right, the right fallopian tube was sharply dissected away from the ovarian complex and left attached to its uterine origin. The utero-ovarian on the left was skeletonized clamping burning cutting and bring this to the uterine previously cut round ligament conserving left ovary. Conserving the right ovary, the utero-ovarian ligament on the right was clamped, burned, cut brought to the previously cut round ligament. The cardinal broad ligaments on the left were serially skeletonized clamping burning cutting a brain these down to the level of the uterine vessels. Uterine vessels were large and tortuous were clamped, burned, cut. In similar fashion on the right, the cardinal and broad ligaments were serially skeletonized clamping burning cutting a bring this down to the level of the uterine vessels on the right these were then individually clamped, burned, cut. Uterus cervix and tubes were then removed through the vagina. The vagina closed with continuous running 0V lock from lateral edge to lateral edge back to the midline. Irrigation undertaken to clear the robot was undocked and the gas removed from the abdomen. The trocars removed the incisions closed with 4 Monocryl and glue. Patient was awake and went recovery in satisfactory condition. All sponge, needle, instrument counts were correct. There were no immediate complications Estimated Blood Loss 25 Drains No Packing No Pathology Yes Complications No immediate complications Condition Stable Disposition PACU
[2023-12-17] MEDS: fentaNYL CITRATE INJ (*CRX) 100 MCG/2 ML VIAL 25 MCG IV PUSH ×4 (12:50→13:07)
[2023-12-17] MEDS: HYDROcodone/acetaminophen (*CRX) 10-325 MG TABLET 1 TAB PO (13:47)
[2023-12-17] MEDS: DEXTROSE 5%/LACTATED RINGERS 1,000 ML 125 ML IV CONT (13:49)
[2023-12-17] MEDS: PROMETHAZINE HCL 25 MG/ML AMPUL 12.5 MG IV PUSH (14:29)
[2023-12-17] MEDS: KETOROLAC 30 MG/ML VIAL (*BKC) IV PUSH (16:22)
[2023-12-17] MEDS: SIMETHICONE 80 MG TAB.CHEW PO (16:22)
[2023-12-17] MEDS: DOCUSATE SODIUM 100 MG CAPSULE PO (16:22)
[2023-12-17] MEDS: HYDROcodone/acetaminophen (*CRX) 5-325 MG TABLET 1 TAB PO ×2 (19:12→22:54)
[2023-12-17] MEDS: IBUPROFEN 600 MG TABLET PO (22:53)
[2023-12-17] MEDS: SIMETHICONE 80 MG TAB.CHEW (22:58)
[2023-12-18] MEDS: HYDROcodone/acetaminophen (*CRX) 5-325 MG TABLET 1 TAB PO ×3 (03:50→14:20)
[2023-12-18 04:00] VITALS: BP 102/60; PULSE 85; RESP 18; TEMP 37; O2SAT 100
[2023-12-18 05:03] LABS: Basophils Percent Auto 0.4 % (0.2-1.2); Eosinophils Percent Auto 0.1 % (0-4.4); Hematocrit 34.2 % (37.0-47.0); Immature Granulocyte Absolute 0.03 K/mm3 (0.00-0.031); Immature Granulocyte Percent A 0.4 % (0-0.5); Lymphocytes Absolute Auto 1.57 K/mm3 (0.9-3.2); Lymphocytes Percent Auto 18.6 % (18.3-44.2); Mean Corpuscular HGB Conc 32.2 g/dl (32-36); Mean Corpuscular Hemoglobin 28.4 pg (26-34); Mean Corpuscular Volume 88.4 fl (80-100); Mean Platelet Volume 11.3 fl (7.4-10.4); Monocytes Absolute Auto 0.8 K/mm3 (0.1-0.6); Monocytes Percent Auto 8.9 % (2.6-8.5); Neutrophils Absolute Auto 6.1 K/mm3 (1.3-6.7); Neutrophils Percent Auto 71.6 % (45.5-73.1); Platelet Count Result 213 k/mm3 (150-375); Red Blood Count 3.87 M/mm3 (4.2-5.4); Red Cell Distribution Width 12.5 % (11.5-14.5); White Blood Count 8.5 K/mm3 (4.5-10.0)
--- NOTE | 2023-12-18 05:46 | PM.DS ---
DS: Admitting Diagnosis Discharge Date 06/2024 Admitting Diagnosis pelvic pain /enlarged uterus/ prolapse DS: Discharge Diagnosis Discharge Diagnosis (1) Dyspareunia: Status: Acute (2) Enlarged uterus: Code(s): N85.2 - Hypertrophy of uterus Status: Acute (3) Uterine prolapse: Code(s): N81.4 - Uterovaginal prolapse, unspecified Status: Acute DS: Summary Hospital Course Reason for hospitalization: patient was admitted for robotic hysterectomy bilateral salpingectomy which was performed on 12/17 23. Hospital Course: Her hospital course was remarkable. She remained afebrile. She was up, eating regular diet, ambulating, voiding without difficulty, generally without complaints. Time Spent with Patient Time attestation: Total time spent providing and/or coordinating discharge services: Exam Const: General: cooperative, healthy appearing and comfortable Nutritional Appearance: average body habitus Orientation/consciousness: oriented to person, oriented to place and oriented to time HENMT: Head: normal to inspection Resp: Effort & Inspection: normal respiratory effort Cardio: Rate: regular rate Rhythm: regular rhythm Heart sounds: S1 normal heart sound present and S2 normal heart sound present GI: Inspection: normal to inspection and incision ( Wounds are clean dry and intact) DS: Data Data Completed and Pending Pending studies at discharge: Pending at discharge 12/17/23 12:07 Surgical [PTH] Routine Labs on day of discharge: Labs from last 24 hours 12/18/23 03:56 WBC 8.5 RBC 3.87 L Hgb 11.0 L Hct 34.2 L MCV 88.4 MCH 28.4 MCHC 32.2 RDW 12.5 Plt Count 213 MPV 11.3 H Immature Gran % (Auto) 0.4 Neut % (Auto) 71.6 Lymph % (Auto) 18.6 [place] % (Auto) 8.9 H Eos % (Auto) 0.1 Baso % (Auto) 0.4 Lymph # (Auto) 1.57 [place] # (Auto) 0.8 H Eos # (Auto) 0.0 Baso # (Auto) 0.0 Abs Immat Gran (auto) 0.03 Absolute Neuts (auto) 6.1 Absolute Nucleated RBC 0.000 Nucleated RBC % 0.0 Discharge Plan Discharge Patient Disposition: Home, Self-Care Stand Alone Forms: General Discharge Instructions Follow-up/Referrals: Maurice Fuller MD [Physician] - Discharge Medications: New hydrocodone-acetaminophen 5-325 mg tablet 1 tablet PO Q4H PRN (Reason: pain) Qty: 30 0RF
--- NOTE | 2023-12-18 05:50 | PM.GYNPNOP ---
MEDICAL HISTORIAN - A/P Postoperative Procedures: Procedures Operation Date: 12/17/23 11:30 Actual Procedure Side Surgeon p Robotic Assisted Total Vaginal Hysterectomy with Bilateral Salpingectomy Bilateral Maurice Posada MD Postoperative day: 1 Postoperative status: doing well Postoperative plan: routine post-op care, see orders, ambulate, advance diet, voiding trials and discharge Time Spent With Patient Time: Total time spent is greater than 50% in coordination of care (as documented) at patient's floor/unit and/or counseling patient: Time with patient: less than 15 minutes MEDICAL HISTORIAN- PN:Subj Post-Op Subjective Date/time seen: 12/18/23 05:50 Subjective: patient has no complaints, patient desires discharge, pain is well controlled and patient is tolerating oral intake Exam Const: General: cooperative, healthy appearing and comfortable Nutritional Appearance: average body habitus Orientation/consciousness: oriented to person, oriented to place and oriented to time HENMT: Head: normal to inspection Resp: Effort & Inspection: normal respiratory effort Cardio: Rate: regular rate Rhythm: regular rhythm Heart sounds: S1 normal heart sound present and S2 normal heart sound present GI: Inspection: normal to inspection and incision ( wounds are clean dry and intact) MEDICAL HISTORIAN - PN: Obj Data Vital Signs Vital Signs: Vital Signs - 24 hr 12/17/23 10:00 12/17/23 12:37 12/17/23 12:52 Temperature 97.9 F 97.6 F Pulse Rate 81 86 75 Respiratory Rate 16 10 L 14 Blood Pressure 113/70 107/65 109/68 Pulse Oximetry 100 100 100 Oxygen Delivery Room Air Simple Face Mask Simple Face Mask Oxygen Flow Rate 10 10 12/17/23 12:55 12/17/23 13:00 12/17/23 13:15 Temperature Pulse Rate 71 71 Respiratory Rate 14 13 Blood Pressure 111/70 109/67 Pulse Oximetry 100 100 98 Oxygen Delivery Room Air Room Air Room Air Oxygen Flow Rate 12/17/23 13:27 12/17/23 13:57 12/17/23 13:57 Temperature 98.1 F Pulse Rate 71 72 Respiratory Rate 13 16 Blood Pressure 108/60 108/65 Pulse Oximetry 98 100 Oxygen Delivery Room Air Room Air Oxygen Flow Rate 12/17/23 16:38 12/17/23 18:00 12/17/23 20:00 Temperature 99.1 F Pulse Rate 84 Respiratory Rate 20 Blood Pressure 101/65 Pulse Oximetry 98 Oxygen Delivery Room Air Room Air Oxygen Flow Rate 12/17/23 20:00 12/17/23 23:48 12/18/23 04:00 Temperature 97.9 F 97.7 F 98.6 F Pulse Rate 86 77 85 Respiratory Rate 18 18 18 Blood Pressure 96/53 L 91/60 L 102/60 Pulse Oximetry 98 98 100 Oxygen Delivery Oxygen Flow Rate Intake/Output Intake/Output: Intake & Output 12/15/23 12/16/23 12/17/23 12/18/23 23:59 23:59 23:59 23:59 Intake Total 900 Output Total 720 Balance 180 Meds/Results Medications: Active Medications Generic Name Dose Route Start Last Admin Trade Name Freq PRN Reason Stop Dose Admin Hydrocodone Bitart/Acetaminophen 1 tab 12/17/23 13:29 12/18/23 03:50 Hydrocodone/Acetaminophen (*Crx) 5-325 Mg Tablet PO 1 tab Q3H PRN Administration Pain Rated 5 or Less Hydrocodone Bitart/Acetaminophen 1 tab 12/17/23 13:29 12/17/23 13:47 Hydrocodone/Acetaminophen (*Crx) 10-325 Mg Tablet PO 1 tab Q3H PRN Administration Pain Rated 6 or Greater Docusate Sodium 100 mg 12/17/23 17:00 12/17/23 16:22 Docusate Sodium 100 Mg Capsule PO 100 mg BID SHEKHAR Administration Enoxaparin Sodium 40 mg 12/18/23 09:00 Enoxaparin 40 Mg/0.4 Ml Syringe SUB-Q DAILY SHEKHAR Ibuprofen 600 mg 12/17/23 13:29 12/17/23 22:53 Ibuprofen 600 Mg Tablet PO 600 mg Q6H PRN Administration Cramping Ketorolac Tromethamine 30 mg 12/17/23 13:29 12/17/23 16:22 Ketorolac 30 Mg/Ml Vial (*Bkc) IV PUSH 12/22/23 13:28 30 mg Q6H PRN Administration Pain Rated 4-6 Naloxone HCl 0.1 mg 12/17/23 13:29 Naloxone Hcl 0.4 Mg/Ml Vial IV PUSH Q2M PRN Respiratory rate less than 10 Ondansetron HCl 4 mg
[2023-12-18 07:15] VITALS: BP 101/61; PULSE 75; RESP 18; TEMP 36.9
[2023-12-18] MEDS: DOCUSATE SODIUM 100 MG CAPSULE PO (08:05)
[2023-12-18] MEDS: SIMETHICONE 80 MG TAB.CHEW PO ×2 (08:05→14:19)
[2023-12-18] MEDS: IBUPROFEN 600 MG TABLET PO ×2 (08:05→14:19)
[2023-12-18] MEDS: ENOXAPARIN 40 MG/0.4 ML SYRINGE SUB-Q (08:06)
--- NOTE | 2023-12-18 16:45 | PC.NURSE ---
163: Pt's ride could not get to hospital until 1634.
== END 2023-12-18 16:35 | disposition home or self-care (01) ==
LOC: ANHSURGERY 09:48 → ANHOB2 13:48
PROVIDERS: PCP Family Medicine; Visit Provider Obstetrics & Gynecology
PROC: (CPT 58552; principal; 2023-12-17 11:30)
DX: N81.4 Uterovaginal prolapse, unspecified (principal); N87.9 Dysplasia of cervix uteri, unspecified; N93.9 Abnormal uterine and vaginal bleeding, unspecified
CPT/HCPCS: 58552; S2900; 36415; 85025; 88307; 99199; A9270; J0690; J1100; J1650; J1885; J2250; J2405; J2550; J2704; J3010; J7030; J7120; J7121